=== PATIENT | female | born 1960 | race Hispanic/Latino ===

== ENCOUNTER 2018-08-11 13:12 | Emergency (ER) | payer SELFPAY ==
[~2018-08-11] VITALS: Ht 157.5 cm; Wt 119.3 kg
[2018-08-11 17:35] VITALS: BP 158/75
== END 2018-08-11 17:37 | disposition home or self-care (01) ==
LOC: ER 13:12
DX: E11.65 Type 2 diabetes mellitus with hyperglycemia (principal); R20.0 Anesthesia of skin; T38.3X6A Underdosing of insulin and oral hypoglycemic [antidiabetic] drugs, initial encounter; Z91.138 Patient's unintentional underdosing of medication regimen for other reason; Z76.0 Encounter for issue of repeat prescription
CPT/HCPCS: 36415; 82948; 99282